=== PATIENT | male | born 1970 | race Caucasian/White ===

== ENCOUNTER 2024-11-19 14:44 | Outpatient (CLI) | payer BC, SELFPAY ==
--- NOTE | ~2024-11-19 | MR_ITS ---
MRI of the left knee Clinical history: Pain Technique: Coronal proton density and proton density-weighted images, sagittal proton-density and T2 fat-sat images, and axial proton-density fat-saturated images were acquired. Findings: Anterior and posterior cruciate ligaments are intact. Medial collateral ligament and the la teral collateral ligament complex are intact. Popliteus tendon is intact. There is a large probable radial/vertical tear of the posterior horn/body of the medial meniscus. Lat eral meniscus intact. There is subchondral insufficiency fracture of the medial femoral condyle with extensive surrounding amorphous marrow edema. There is focal moderate chondromalacia of the patellar apex. Extensor mechanism is intact. Minimal joint effusion present. Small Jefferson cyst present. Impression: Large probable radial/vertical tear of the posterior horn and body of medial meniscus. Subchondral insufficiency fracture the medial femoral condyle with extensive surrounding amorphous ma rrow edema. Reviewed, dictated and finalized at [facility]. Impression: Large probable radial/vertical tear of the posterior horn and body of medial me niscus. Subchondral insufficiency fracture the medial femoral condyle with extensive jurado rrounding amorphous marrow edema.
== END 2024-11-19 14:45 | disposition home or self-care (01) ==
PROVIDERS: PCP Orthopaedic Surgery; Visit Provider Orthopaedic Surgery
DX: M25.562 Pain in left knee (principal); S83.242A Other tear of medial meniscus, current injury, left knee, initial encounter; M84.48XA Pathological fracture, other site, initial encounter for fracture
CPT/HCPCS: 73721

== ENCOUNTER 2025-03-05 00:11 | Day surgery (SDC) | payer BC, SELFPAY ==
[2025-02-22 14:55] VITALS: BMI 42.5
--- NOTE | 2025-02-22 14:57 | PC.NURSE ---
[facility] has started construction of its new state of the art ER which will open Spring 2026. With this, we anticipate parking may be a challenge for some our surgical patients and families. Parking spaces are limited but are available for all Surgical, obstetrics, and ER patients sharing this lot. If you arrive and find you are having a hard time finding a parking space, please note that we understand the challenges, please drive around the hospital and park near Hospital Entrance 1. When you enter this entrance, you can ask a volunteer to direct or take you back to the surgical waiting area to check in. We appreciate everyone?s understanding of these expected challenges while we build for your future. Report to the Outpatient Waiting Room, entrance under the green pavilion located off [address], at time _1000_ on date _[phone]_. Planned Procedure Time: _1200_.? Time changes happen often and if your time is changed the preop area will call you the afternoon before. - You and your visitor will be asked to self-screen and do not enter if you have any COVID symptoms. Please call surgeon if you need to reschedule. - A mask is optional within the hospital at this time. Patients may have clear liquids (water, carbonated beverages, clear teas, apple juice) until 3 hours prior to surgery with a maximum of 20 ounces. - No food from midnight until time of surgery and no smoking, or chewing tobacco (or any form of nicotine). No chewing gum, candy or mints. Take only the following medications with a SIP of water on the morning of surgery: ___None____ DO NOT STOP ANY OF YOUR OTHER PRESCRIPTION MEDICATIONS PRIOR TO SURGERY EXCEPT THE FOLLOWING Hold all vitamins and supplements for 3 days per anesthesiologist. Medications to discontinue per physician Date to take last orko___[phone]____ Please no make-up, nail namibian, hairspray, perfume, deodorant, or body powder the day of surgery.? No jewelry (including any body piercings) or valuables the day of surgery, leave them at home.? Please take a shower or bath the night before, or the morning of, surgery with an antibacterial soap.? Wear comfortable, loose fitting clothing.? - Jewelry must be removed prior to entering the operating room.? Rings and piercings that are not removed may be cut off. - The hospital will not accept responsibility for valuables.? - Please leave all valuables, including medications, at home the day of surgery. If you are going home after surgery, a licensed clark driver must drive you home.? - NO public transportation without another adult if you receive anesthesia. - We recommend that an adult stay with you for 24 hours following discharge. - We also recommend that you do not drive, make important decision, drink alcoholic beverages, or take any drugs that were not prescribed by your health care provider for at least 24 hours after your discharge time. Follow any additional instructions given to you from your surgeon. Telephone instructions given to __David__and asked if any additional questions and then verbalized understanding. Patient advised to call surgeon office or pre surgery nurse liaison [phone] if any additional questions.
[2025-03-05] VITALS (8 sets, daily range): BP systolic 125–163; BP diastolic 69–97; PULSE 62–73; RESP 15–20; TEMP 36.4–37.1; O2SAT 95–99; BMI 42.3
--- OUTSIDE RECORDS SUMMARY | 2025-03-05 00:14 | XMS_ITS | Encounter Summary ---
Author Organization [facility] Address [address] [place] [address] Care Team Providers Care Glass Glazier Name Role Phone Unavailable Primary Care Provider Unavailabl e Encounter Details Date Type Department Care Team (Late st Contact Info) Description 02/26/2024 Lab Requisition [facility] - DermPath Lab [address] [place] [address] Sonal Nieto MD [address] [facility] [address] [place] [address] Social History Tobacco Use Types Packs/Day Years Used Date Smoking Tobacco: Never Assessed Sex and Gender Information Value Date Recorded Sex Assigned at Not on file 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 Gender Identity Not on file Sexual Orientation Not on file documented as of this encounter Plan of Treatment Not on file documented as of this encounter Procedures Procedure Name Priority Date/Time Associated Diagnosis Comments DERMATOPATHOLOGY Routine 02/26/2024 2:37 PM CDT documented in this encounter Results * DERMATOPATHOLOGY (02/26/2024 2:37 PM CDT) Case Report Dermatopathology Report Case: [id number] Authorizing Provider: Sonal Nieto MD Collected: 02/26/2024 02:37 PM Ordering Location: [facility] - Received: 02/27/2024 12:57 PM DermPath Lab Pathologist: Estefania Murrieta MD Specimen: Skin, left FA 12:35 PM CDT DERMATOPATHOLOGY LABORATORY Final Diagnosis Specimen A. 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 The specimen consists of a shave biopsy measuring 10x9x2 mm. Jar 0. 12:35 PM CDT DERMATOPATHOLOGY LABORATORY Microscopic Description Specimen A. SKIN, left FA: The epidermis shows parakeratosis, full thickness disorderly maturation of keratinocytes, mitoses at different levels, and dyskeratotic cells. 12:35 PM CDT DERMATOPATHOLOGY LABORATORY Disclaimer An external and internal positive and negative controls are appropriate for the histochemical, immunohistochemical and immunofluorescence stain(s) in this case (if any), except where stated explicitly. The performance characteristics of the stain(s) cited in this report were developed and its performance characteristic determined by the Dermatopathology Laboratory at [facility], directed by Dr. Juan C Jaime. These tests need not be, and therefore are not, approved by the [place] Food and Drug Administration. The tests are used for clinical purposes. Billing Codes Specimen Charges Stain Charges 35965 1 12:35 PM CDT DERMATOPATHOLOGY LABORATORY Embedded Images 12:35 PM CDT DERMATOPATHOLOGY LABORATORY Pathology/Cytolo gy TISSUE SPECIMEN FROM SKIN / Unknown 02/26/2024 2:37 PM CDT 02/27/2024 12:57 PM CDT Sonal Nieto MD LAB - PATHOLOGY/CYTOLOGY OR DERABLES Final Result DERMATOPATHOLOGY LABORATORY [facility] - Department of Dermatology [address] [place] [address], [facility] [phone] documented in this encounter Visit Diagnoses Not on filedocumented in this encounter
--- OUTSIDE RECORDS SUMMARY | 2025-03-05 00:14 | XMS_ITS | Encounter Summary ---
Author Organization [facility] Address [address] [place] [address] Care Team Providers Care Blacktop Spreader Name Role Phone Unavailable Primary Care Provider Unavailabl e Encounter Details Date Type Department Care Team (Late st Contact Info) Description 06/23/2018 Lab Requisition [facility] Care DermPath Lab [address] [facility] [place] [phone] Sonla Nieto MD [address] [facility] [address] [place] [address] Social History Tobacco Use Types Packs/Day Years Used Date Smoking Tobacco: Never Assessed Sex and Gender Information Value Date Recorded Sex Assigned at Not on file 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 Gender Identity Not on file Sexual Orientation Not on file documented as of this encounter Plan of Treatment Not on file documented as of this encounter Procedures Procedure Name Priority Date/Time Associated Diagnosis Comments DERMATOPATH TECHNICAL REPORT Routine 06/19/2018 12:00 AM MAIL ORDER CLERK documented in this encounter Results * DERMATOPATH TECHNICAL REPORT (06/19/2018 12:00 AM MAIL ORDER CLERK) Case Report Dermatopathology Report Case: [id number] Authorizing Provider: Sonal Nieto MD Collected: 06/19/2018 12:00 AM Pathologist: Estefania Murrieta MD Received: 06/23/2018 06:51 AM Specimen: Skin, left nasal ala 9 1:05 PM MAIL ORDER CLERK DERMATOPATHOLOGY LABORATORY Clinical History BCC vs FP. Bleeding. Check margins. 9 1:05 PM MAIL ORDER CLERK DERMATOPATHOLOGY LABORATORY Gross Description Specimen A: Received is one formalin filled container labeled with the patient's name and designated left nasal ala. The specimen consists of a shave measuring 4o1s1ij. Jar 0. [facility] Dermatopathology Laboratory performed the technical component only. 9 1:[address] [facility] DERMATOPATHOLOGY LABORATORY Embedded Images 1:[address] [facility] DERMATOPATHOLOGY LABORATORY DISCLAIMER An external and internal positive and negative controls are appropriate for the histochemical, immunohistochemical and immunofluorescence stain(s) in this case (if any), except where stated explicitly. The performance characteristics of the stain(s) cited in this report were developed and its performance characteristic determined by the Dermatopathology Laboratory at [facility], directed by Dr. Juan C Jaime. These tests need not be, and therefore are not, approved by the [place] Food and Drug Administration. The tests are used for clinical purposes. 9 1:[address] [facility] DERMATOPATHOLOGY LABORATORY at 1305 MAIL ORDER CLERK Pathology/Cytolog y TISSUE SPECIMEN FROM SKIN / Unknown 06/19/2018 06/23/2018 6:51 AM MAIL ORDER CLERK Sonal Nieto MD LAB - PATHOLOGY/CYTOLOGY OR DERABLES Final Result DERMATOPATHOLOGY LABORATORY [facility] - Department of Dermatology [facility] [facility]th [place] [address], [facility] [phone] documented in this encounter Visit Diagnoses Not on filedocumented in this encounter
--- OUTSIDE RECORDS SUMMARY | 2025-03-05 00:14 | XMS_ITS | Encounter Summary ---
Author Organization [facility] Address [address] [place] [address] Care Team Providers Care Director Of User Experience Name Role Phone Unavailable Primary Care Provider Unavailabl e Encounter Details Date Type Department Care Team (Late st Contact Info) Description 06/17/2019 Lab Requisition [facility] DermPath Lab [address] [facility] [place] [phone] Maria De Jesus Vo DO [address] [facility] [address] [place] [address] Social History Tobacco Use Types Packs/Day Years Used Date Smoking Tobacco: Never Assessed Sex and Gender Information Value Date Recorded Sex Assigned at Not on file 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 Gender Identity Not on file Sexual Orientation Not on file documented as of this encounter Plan of Treatment Not on file documented as of this encounter Procedures Procedure Name Priority Date/Time Associated Diagnosis Comments DERMATOPATHOLOGY Routine 06/16/2019 12:0 0 AM RATING OFFICER documented in this encounter Results * DERMATOPATHOLOGY (06/16/2019 12:00 AM RATING OFFICER) Case Report Dermatopathology Report Case: [id number] Authorizing Provider: Maria De Jesus Vo DO Collected: 06/16/2019 12:00 AM Ordering Location: [facility] DermPath Lab Received: 06/17/2019 12:42 PM Pathologist: Estefania Murrieta MD Specimens: A) - Skin, right abdomen B) - Skin, right upper back C) - Skin, left lower back 0 1:31 PM RATING OFFICER DERMATOPATHOLOGY LABORATORY Final Diagnosis Specimen A. SKIN, right abdomen: LENTIGINOUS MELANOCYTIC NEVUS, COMPOUND TYPE, IRRITATED (COMPOUND MELANOCYTIC NEVUS WITH ARCHITECTURAL DISORDER) (D22.5) Specimen B. SKIN, right upper back: LENTIGINOUS MELANOCYTIC NEVUS, COMPOUND TYPE, IRRITATED (COMPOUND MELANOCYTIC NEVUS WITH ARCHITECTURAL DISORDER) (D22.5) Specimen C. SKIN, left lower back: INTRADERMAL MELANOCYTIC NEVUS (D22.5) 0 1:[address] [facility] DERMATOPATHOLOGY LABORATORY at 1331 RATING OFFICER Clinical History A-C: Nevus R/O atypia. 0 1:[address] [facility] DERMATOPATHOLOGY LABORATORY Gross Description Specimen A: Received is one formalin filled container labeled with the patient's name and designated right abdomen. The specimen consists of a shave biopsy measuring 8x8x1 mm. Jar 0. Specimen B: Received is one formalin filled container labeled with the patient's name and designated right upper back. The specimen consists of a shave biopsy measuring 8x6x1 mm. Jar 0. Specimen C: Received is one formalin filled container labeled with the patient's name and designated left lower back. The specimen consists of a shave biopsy measuring 8x8x1 mm. Jar 0. 0 1:[address] [facility] DERMATOPATHOLOGY LABORATORY Microscopic Description Specimen A. SKIN, right abdomen: This is a compound nevus. There is melanin pigment in the stratum corneum. There is architectural disorder characterized by a lentiginous proliferation of melanocytes between irregular nevus nests of cells along the dermal epidermal junction. There is underlying fibroplasia of the papillary dermis. The intradermal component is bland in appearance and matures with depth. (Compound Karson's Nevus or Compound Dysplastic Nevus) Specimen B. SKIN, right upper back: This is a compound nevus. There is melanin pigment in the stratum corneum. There is architectural disorder characterized by a lentiginous proliferation of melanocytes between irregular nevus nests of cells along the dermal epidermal junction. There is underlying fibroplasia of the papillary dermis. The intradermal component is bland in appearance and matures with depth. (Compound Karson's Nevus or Compound Dysplastic Nevus) Specimen C. SKIN, left lower back: There are nests of cytologically bland melanocytes within the dermis that mature with depth. 0 1:[address] [facility] DERMATOPATHOLOGY LABORATORY Disclaimer An external and internal positive and negative controls are appropriate for the histochemical, immunohistochemical and immunofluorescence stain(s) in this case (if any), except where stated explicitly. The performance characteristics of the stain(s) cited in this report were developed and its performance characteristic determined by the Dermatopathology Laboratory at [facility], directed by Dr. Juan C Jaime. These tests need not be, and therefore are not, approved by the [place] Food and Drug Administration. The tests are used for clinical purposes. Billing Codes Specimen Charges Stain Charges 38688 42739 84037 1 1 1 0 1:31 PM RATING OFFICER DERMATOPATHOLOGY LABORATORY Embedded Images 0 1:31 PM RATING OFFICER DERMATOPATHOLOGY LABORATORY Pathology/Cytology TISSUE SPECIMEN FROM SKIN / Unknown 06/16/2019 06/17/2019 12:42 PM RATING OFFICER Miscellaneous samples (specimen) TISSUE SPECIMEN FROM SKIN / Unknown 06/16/2019 06/17/2019 12:42 PM RATING OFFICER Miscellaneous samples (specimen) TISSUE SPECIMEN FROM SKIN / Unknown 06/16/2019 06/17/2019 12:42 PM RATING OFFICER Maria De Jesus Vo DO LAB - PATHOLOGY/CYTOLOGY ORDERABLES Final Result DERMATOPATHOLOGY LABORATORY [facility] - Department of Dermatology [address] [place] [address], [address] [place] [address], [facility] [phone] documented in this encounter Visit Diagnoses Not on filedocumented in this encounter
--- OUTSIDE RECORDS SUMMARY | 2025-03-05 00:14 | XMS_ITS | Clinical Summary ---
Author Organization [facility] Address [address] [place] [address] Care Team Providers Care Stripping Shovel Operator Name Role Phone Unavailable Primary Care Provider Unavailabl e Source Comments [facility] [employer],non-owned Affiliates and Associated Physician Practices is amultiple site organization consisting of ambulatory clinics and hospital sitesin [place], [place], [place] and [place]. This disclosure is being madepursuant to the Care Everywhere program and may not contain all information available regarding this patient. 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 Gender Identity Not on file Sexual Orientation Not on file Plan of Treatment Health Maintenance Due Date Last Done Comments COLOGUARD (AGES 45-75) - COL ON CA SCREENING 1971 COLON MONITORING 1971 COLONOSCOPY - COLON CA SCREENING 1971 CT COLONOGRAPHY - COLON CA SCREENING 1971 Colorectal Cancer Screening 1971 FIT - COLON CA SCREENING 1971 FLEX SIG - COLON CA SCREENING 1971 LIPID TESTING 1971 HIV SCREENING 11/09/1986 HEPATITIS C SCREENING 11/05/1989 DTAP/TDAP/TD VACCINES (1 - Tdap) 11/09/1990 HEPATITIS B VACCINE (1 of 3 - 19+ 3-dose series) 11/09/1990 PNEUMOCOCCAL VACCINE 50+ (1 of 1 - PCV) 11/09/2021 ZOSTER VACCINE (1 of 2) 11/09/2021 DEPRESSION SCREENING 05/06/2024 COVID-19 VACCINE (1 - 2023-2 5 season) 2025 INFLUENZA VACCINE (#1) 2025 HIB VACCINE Aged Out No longer eligi ble based on patient's age to complete this topic HPV VACCINE Aged Out No longer eligi ble based on patient's age to complete this topic MENINGOCOCCAL (Group B) VACC INE SHARED DECISION-MAKING Aged Out No longer eligibl e based on patient's age to complete this topic MENINGOCOCCAL GROUPS A/C/Y/W VACCINE Aged Out No longer eligible b ased on patient's age to complete this topic Insurance [facility] Subscriber Plan / Payer ( fective 2018-Present) Name:Rafita oHward Relation to Subscriber:Self Name:Rafita Howard Payer ID:[id number] (NAIC) Type:PPO Address: [place] [phone]
--- OUTSIDE RECORDS SUMMARY | 2025-03-05 00:14 | XMS_ITS | Encounter Summary ---
Author Organization [facility] Address [address] [facility] [place] [address] Care Team Providers Care Animal Hospital Clerk Name Role Phone Unavailable Primary Care Provider Unavailabl e Encounter Details Date Type Department Care Team (Late st Contact Info) Description 11/23/2019 Lab Requisition [facility] DermPath Lab [address] [facility] [place] [phone] Sonal Nieto MD [address] [facility] [address] [place] [address] Social History Tobacco Use Types Packs/Day Years Used Date Smoking Tobacco: Never Assessed Sex and Gender Information Value Date Recorded Sex Assigned at Not on file 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 Gender Identity Not on file Sexual Orientation Not on file documented as of this encounter Plan of Treatment Not on file documented as of this encounter Procedures Procedure Name Priority Date/Time Associated Diagnosis Comments DERMATOPATHOLOGY Routine 11/19/2019 12:0 0 AM CDT documented in this encounter Results * DERMATOPATHOLOGY (11/19/2019 12:00 AM CDT) Case Report Dermatopathology Report Case: [id number] Authorizing Provider: Sonal Nieto MD Collected: 11/19/2019 12:00 AM Ordering Location: [facility] DermPath Lab Received: 11/23/2019 11:04 AM Pathologist: Burt Jaime MD Specimens: A) - Skin, central abd B) - Skin, right cheek 0 3:29 PM CDT DERMATOPATHOLOGY LABORATORY Final Diagnosis Specimen A. SKIN, central abd: DERMAL SCAR (L90.5) (see microscopic description) Specimen B. SKIN, right cheek: ACTINIC KERATOSIS, ERODED (L57.0) 0 3:29 PM CDT DERMATOPATHOLOGY LABORATORY at 1529 CDT Clinical History A-B: R/O BCC, SCC, irritated. 0 3:29 PM CDT DERMATOPATHOLOGY LABORATORY Gross Description Specimen A: Received is one formalin filled container labeled with the patient's name and designated central abd. The specimen consists of a shave measuring 57i6h1fq. Jar 0. Specimen B: Received is one formalin filled container labeled with the patient's name and designated right cheek. The specimen consists of a shave measuring 7l4q1ho. Jar 0. 0 3:29 PM CDT DERMATOPATHOLOGY LABORATORY Microscopic Description Specimen A. SKIN, central abd: There are fibroblasts and collagen bundles oriented parallel to the skin surface with elongated blood vessels, some of which are oriented perpendicular to the skin surface. There is no evidence of epithelial dysplasia or malignancy in multiple deeper sections examined. Specimen B. SKIN, right cheek: There is alternating orthokeratosis and parakeratosis. The epidermis is focally eroded. Along the undersurface of the epidermis, there are buds of atypical keratinocytes in a disorderly arrangement. 0 3:29 PM CDT DERMATOPATHOLOGY LABORATORY Disclaimer An external and internal positive and negative controls are appropriate for the histochemical, immunohistochemical and immunofluorescence stain(s) in this case (if any), except where stated explicitly. The performance characteristics of the stain(s) cited in this report were developed and its performance characteristic determined by the Dermatopathology Laboratory at [facility], directed by Dr. Juan C Jaime. These tests need not be, and therefore are not, approved by the [place] Food and Drug Administration. The tests are used for clinical purposes. Billing Codes Specimen Charges Stain Charges 83549 24420 1 1 0 3:29 PM CDT DERMATOPATHOLOGY LABORATORY Embedded Images 0 3:29 PM CDT DERMATOPATHOLOGY LABORATORY Pathology/Cytology TISSUE SPECIMEN FROM SKIN / Unknown 11/19/2019 11/23/2019 11:04 AM CDT Miscellaneous samples (specimen) TISSUE SPECIMEN FROM SKIN / Unknown 11/19/2019 11/23/2019 11:04 AM CDT Sonal Nieto MD LAB - PATHOLOGY/CYTOLOGY OR DERABLES Final Result DERMATOPATHOLOGY LABORATORY [facility] - Department of Dermatology [facility] [place] [address], [facility] [phone] documented in this encounter Visit Diagnoses Not on filedocumented in this encounter
--- OUTSIDE RECORDS SUMMARY | 2025-03-05 00:14 | XMS_ITS | Encounter Summary ---
Author Organization [facility] Address [address] [place] [address] Care Team Providers Care General Dentist Name Role Phone Unavailable Primary Care Provider Unavailabl e Encounter Details Date Type Department Care Team (Late st Contact Info) Description 04/23/2024 Lab Requisition [facility] - DermPath Lab [address], [facility] [place] [address] Deisy Carrillo MD [address] [facility] [address] [place] [address] Social History Tobacco Use Types Packs/Day Years Used Date Smoking Tobacco: Never Assessed Sex and Gender Information Value Date Recorded Sex Assigned at Not on file Legal Sex Male 5:24 PM [employer] Gender Identity Not on file Sexual Orientation Not on file documented as of this encounter Plan of Treatment Not on file documented as of this encounter Procedures Procedure Name Priority Date/Time Associated Diagnosis Comments DERMATOPATHOLOGY Routine 04/23/2024 9:28 AM [employer] documented in this encounter Results * DERMATOPATHOLOGY (04/23/2024 9:28 AM [employer] TE[employer]ER) Case Report Dermatopathology Report Case: [id number] Authorizing Provider: Deisy Carrillo MD Collected: 04/23/2024 09:28 AM Ordering Location: [facility] - Received: 04/24/2024 11:45 AM DermPath Lab Pathologist: Burt Jaime MD Specimen: Skin, left forearm 1:19 PM [employer] TE[employer]ER DERMATOPATHOLOGY LABORATORY Final Diagnosis Specimen A. 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 The specimen consists of a non-oriented ellipse of skin measuring [id number] mm. The epidermal surface is unremarkable. The margin is inked green. The 12 o'clock and 6 o'clock tips are submitted in cassette 1. The remainder of the ellipse is serially sectioned and submitted in cassette 3-4. Jar 0. 1:19 PM [facility] DERMATOPATHOLOGY LABORATORY Microscopic Description Specimen A. SKIN, left forearm: There are fibroblasts and collagen bundles oriented parallel to the skin surface. There are elongated blood vessels, some of which are oriented perpendicular to the skin surface. No residual squamous cell carcinoma is identified. 1:19 PM [facility] DERMATOPATHOLOGY LABORATORY Disclaimer An external and internal positive and negative controls are appropriate for the histochemical, immunohistochemical and immunofluorescence stain(s) in this case (if any), except where stated explicitly. The performance characteristics of the stain(s) cited in this report were developed and its performance characteristic determined by the Dermatopathology Laboratory at [facility], directed by Dr. Juan C Jaime. These tests need not be, and therefore are not, approved by the [place] Food and Drug Administration. The tests are used for clinical purposes. Billing Codes Specimen Charges Stain Charges 51829 1 1:19 PM [facility] DERMATOPATHOLOGY LABORATORY Embedded Images 1:19 PM [facility] DERMATOPATHOLOGY LABORATORY Pathology/Cytolo gy TISSUE SPECIMEN FROM SKIN / Unknown 04/23/2024 9:28 AM [employer] TE[employer]ER 04/24/2024 11:45 AM [facility] us Deisy Carrillo MD LAB - PATHOLOGY/CYTOLOGY ORD ERABLES Final Result DERMATOPATHOLOGY LABORATORY [facility] - Department of Dermatology [address] [place] [address], [facility] [phone] documented in this encounter Visit Diagnoses Not on filedocumented in this encounter
--- NOTE | 2025-03-05 09:12 | ECG_ITS ---
Test Date: 2025-03-05 09:24:34 Measurements Intervals Milner Rate: 68 P: 46 AK: 167 QRS: 74 QRSD: 102 T: 50 QT: 405 QTc: 433 Interpretive Statements SINUS RHYTHM DELAYED PRECORDIAL R/S TRANSITION BORDERLINE ECG No previous ECG available for comparison Electronically Signed On 03-05-2025 09:35:00 CDT by Oswaldo Nuñez D.O.
[2025-03-05] MEDS: LACTATED RINGERS 1,000 ML 30 ML IV CONT (09:15)
[2025-03-05] MEDS: KETOROLAC 15 MG/ML VIAL (*BKC) IV PUSH (09:42)
[2025-03-05] MEDS: ACETAMINOPHEN 500 MG TABLET 1000 MG PO (09:42)
--- NOTE | 2025-03-05 10:25 | WPDHPUPDATE1 ---
History and Physical Update Update Date/Time: 03/05/25 10:25 History and Physical has been reviewed, including an updated exam of the patient. There are NO changes in the patient's condition. Risks, benefits, and alternatives have been discussed and questions answered. Patient agrees to proceed with procedure. Left Knee Arthroscopy with partial medial meniscectomy. Risks include but are not limited to, infection, dvt and he agrees to proceed.
--- NOTE | 2025-03-05 10:26 | PM.IMHP ---
H&P: HPI History of Present Illness Date/Time: 03/05/25 10:26 Chief Complaint: Left knee pain with medial meniscus tear Narrative: 54 yr old male with Left Knee Medial Meniscus tear. He has had pain for greater than 3 months and has failed conservative management with injections as well as oral medications. - mri confirms medial meniscus tear. [facility] Social History Social History Years smoked: 30 Smoking status: Current some day smoker Tobacco type: cigarettes Additional smoking assessment comments: Smokes only when drinking. Alcohol intake: current Drinks per week: 9 Living arrangements: alone Spiritual care concerns: No Meds Home Medications and Allergies Home Medications ?Medication ?Instructions ?Recorded ?Confirmed ?Type lisinopril 10 mg tablet 10 mg PO DAILY 02/22/25 03/05/25 History multivitamin (Daily Multi-Vitamin 1 tablet PO DAILY 02/22/25 03/05/25 History tablet) omeprazole 20 mg capsule,delayed 20 mg PO DAILY 02/22/25 03/05/25 History release Allergies Allergy/AdvReac Type Severity Reaction Status Date / Time No Known Allergies Allergy Unknown Verified 03/05/25 09:54 Vital Signs Vital Signs - 24 hr 03/05/25 08:35 Temperature 37.1 C Pulse Rate 73 Respiratory Rate 16 Blood Pressure 163/78 H Pulse Oximetry 96 Oxygen Delivery Room Air Exam Narrative: Left knee with tenderness over the medial joint line with moderate effusion. Const: General: cooperative, healthy appearing, comfortable, no acute distress, well developed, alert and awake Nutritional Appearance: overweight Orientation/consciousness: oriented to person, oriented to place and oriented to time Assessment and Plan Assessment and plan (1) Tear of medial meniscus of left knee: Code(s): S83.242A - Other tear of medial meniscus, current injury, left knee, initial encounter Status: Acute Plan 54 yr old male with Left Knee medial meniscus tear. Plan for Left Knee arthroscopy with partial medial meniscectomy.
--- NOTE | 2025-03-05 10:31 | WPDANESEPPF ---
Anes - Initial Pre Proc Eval Procedure: Operation Date: 03/05/25 10:30 Proposed Procedures p Left Knee Arthroscopy, Left Medial and Lateral Meniscus Repair - Gaudencio Boss MD Date/Time: 03/05/25 10:31 Surgeon: Gaudencio Boss MD Pre Op Diagnosis: Left Knee Pain Patient Data Age: 54 Gender: M Height: 1.83 m Weight: 141.5 kg Last Vital Signs Temp 37.1 C 03/05/25 08:35 Pulse 73 03/05/25 08:35 Resp 16 03/05/25 08:35 BP 163/78 H 03/05/25 08:35 Pulse Ox 96 03/05/25 08:35 O2 Del Method Room Air 03/05/25 08:35 Allergies Allergy/AdvReac Type Severity Reaction Status Date / Time No Known Allergies Allergy Unknown Verified 03/05/25 09:54 Home Medications ?Medication ?Instructions ?Recorded ?Confirmed ?Type lisinopril 10 mg tablet 10 mg PO DAILY 02/22/25 03/05/25 History multivitamin (Daily Multi-Vitamin 1 tablet PO DAILY 02/22/25 03/05/25 History tablet) omeprazole 20 mg capsule,delayed 20 mg PO DAILY 02/22/25 03/05/25 History release Patient hx anesthesia problems: other (could not be intubated at the [facility]) Family hx anesthesia problems: none Results Review: All pre-operative results and documents have been reviewed as part of the pre-operative evaluation. [facility] Social History Social History Years smoked: 30 Smoking status: Current some day smoker Tobacco type: cigarettes Additional smoking assessment comments: Smokes only when drinking. Alcohol intake: current Drinks per week: 9 Living arrangements: alone Spiritual care concerns: No Anes - Eval Final PreProcedure Day of Procedure 03/05/25 10:31 Patient weight: morbidly obese Heart: regular rate and rhythm Lungs: decreased breath sounds Airway: Mallampati scale class III Neurological: alert and oriented Last oral intake: >/= 8 hours ASA classification: III Emergent: no Anesthetic plan: proceed Anesthesia type and monitoring: general LMA and standard monitoring Results Review: All pre-operative results and documents have been reviewed as part of the pre-operative evaluation. Informed Consent: The patient's anesthetic plan and its attendant risks and benefits were discussed with the patient/family/POA. Questions were solicited and answers provided to the satisfaction of the patient/family/POA.
[2025-03-05] MEDS: ceFAZolin 3 GM/D5W 100 ML 100 ML IVPB (10:42)
[2025-03-05] MEDS: LIDO 1%/EPINEPHRINE 1:100,000 20 ML VIAL INFILTRATE (11:15)
[2025-03-05] MEDS: TRIAMCINOLONE ACET INJ 40 MG/ML VIAL 80 MG IM (11:30)
--- NOTE | 2025-03-05 11:43 | P.OP_ITS ---
Procedure Note - Detailed Date of Procedure 03/05/25 Pre-op Diagnosis Left Knee Pain, medial meniscus tear Post-op Diagnosis Other (Left Knee medial meniscus tear, radial and non-repairable.) Procedure Performed Left Knee Arthroscopic Partial Medial Meniscectomy Surgeon Gaudencio Boss MD Anesthesia General Indications Persistent symptomatic Left Knee Medial Meniscus tear that was confirmed by MRI and physical exam. Failed conservative management, (Injections, oral medications, bracing) Findings Non-repairable Left Knee Medial Meniscus Tear Description of Procedure After obtaining consent with regards to a left knee arthroscopy, the left knee was then marked in the holding area and all questions were answered. With regards to the patient's family who was present also, which was his girlfriend and his mother, he had significant tenderness to palpation over the medial joint line. The patient was then brought to the operating room. The patient was in a supine position, which time he underwent general anesthesia. Which was his girlfriend and his mother. He had significant tenderness to palpation over the medial joint line. The patient was then brought to the operating, placed in a supine position which time he underwent general anesthesia. He was then placed in the left lower extremity arthroscopic knee quiroga with all bony prominences padded. The right lower extremity was securely padded and secured to the bed. The left lower extremity was then prepped and draped in a standard sterile fashion. Time out was performed to verify correct patient, correct site of surgery and correct procedure. Standard 3 arthroscopic portals were made and then entered into the patellofemoral joint space at which time I noted pristine articular cartilage over the patella and also over the trochlea. I then entered to the medial joint space at which time I noted excellent pristine articular cartilage over the femoral side as well as over the tibial side. Partial medial meniscectomy performed using an arthroscopic shaver as well as an arthroscopic biter I also went into the medial compartment and identified a vertical radial tear through the medial meniscus that was unstable. I proceeded to perform a partial medial meniscectomy using an arthroscopic biter as well as an arthroscopic shaver back to a stable margin. He had an intact ACL and also an intact lateral meniscus. The lateral compartment articular cartilage was also without evidence of articular surface defects. And then irrigated coaxially injected with 80 milligrams of Kenalog as well as 1% lidocaine and closed the portal sites using monocryl suture and also Steri- STrips. Tamika was unbanished in his sterile fashion. He was transferred to the recovery room in stable condition. The patient was instructed to take [id number] ibuprofen as well as Tylenol three times a day for three days, and I'll see him back next week on Saturday. Estimated Blood Loss 3 Tourniquet Time Total Tourniquet Time: 0 Drains No Packing No Pathology None sent Complications None Condition Stable Disposition PACU
== END 2025-03-05 13:23 | disposition home or self-care (01) ==
PROVIDERS: PCP Nurse Practitioner; Visit Provider Orthopaedic Surgery
PROC: (CPT 29870; principal; 2025-03-05 10:30)
DX: S83.242A Other tear of medial meniscus, current injury, left knee, initial encounter (principal); X58.XXXA Exposure to other specified factors, initial encounter; F17.210 Nicotine dependence, cigarettes, uncomplicated; E66.01 Morbid (severe) obesity due to excess calories; Z68.41 Body mass index [BMI] 40.0-44.9, adult
CPT/HCPCS: 29881; 93005; A9270; J0690; J1885; J2004; J2250; J2270; J2704; J3010; J3301; J7120